=== PATIENT | male | born 1995 ===

== ENCOUNTER 2023-01-23 04:14 | Day surgery (SDC) | payer OTHER ==
[~2023-01-23] VITALS: Ht 175.3 cm; Wt 121.6 kg
== END 2023-01-23 11:45 | disposition home or self-care (01) ==
LOC: CIR.AMB 04:14
PROVIDERS: ATTEND Specialist
DX: K80.10 Calculus of gallbladder with chronic cholecystitis without obstruction (principal); D18.09 Hemangioma of other sites; R59.0 Localized enlarged lymph nodes; Z20.822 Contact with and (suspected) exposure to COVID-19